=== PATIENT | female | born 1950 | race Caucasian/White ===

== ENCOUNTER → 2017-04-28 | Outpatient (CLI) | payer MEDICARE, OTHER ==
--- NOTE | 2017-04-28 15:59 | MRI ---
EXAM DESCRIPTION: Lumbar Spine w/wo Contrast MRI. CLINICAL HISTORY: RADICULOPATHY COMPARISON: MRI scan lumbar spine 03/10/2012. TECHNIQUE: Multiplanar, multiple standard sequences, high-field MRI scans without and with gadolinium IV contrast, lumbar spine. No adverse reactions. FINDINGS: L5-S1: Diffuse Modic type I endplate reactive changes with marked disc space narrowing. Bilateral partial L5 laminectomy. Desiccation of the disc remnant with posterior midline 3 mm bulge. Mild canal narrowing. Moderate right foraminal narrowing and severe left foraminal narrowing with bony abutment of the exiting left L5 nerve. Bilateral mild facet arthrosis. Normal contrast enhancement of the nerve roots. L4-5: Disc desiccation and minimal disc space loss. Grade 1 anterolisthesis 3.8 mm with minimal disc bulge. Small Schmorl's nodes inferior L4 endplate. Canal nearly stenotic. Severe bilateral foraminal narrowing more left than right. Bilateral partial L4 laminectomy. Bilateral mild facet arthrosis. Normal contrast enhancement of the nerve roots. No posterior soft tissue enhancement. L3-4: Disc desiccation and disc space is preserved. No posterior bulging. Minimal facet arthrosis and ligament hypertrophy. Mild canal narrowing. Bilateral foramina and canal are patent. Normal enhancement nerve roots. L2-3: Minimal disc desiccation. No posterior bulging. Disc space preserved. Minimal ligament hypertrophy bilaterally. Canal and bilateral foramina are patent. Normal contrast enhancement. L1-2: Conus terminates at L1, otherwise unremarkable. Normal contrast enhancement. T12-L1: Disc is unremarkable disc space narrowed. Modic type II endplate reactive changes anterior inferior T12 endplate. No enhancement. Canal and foramina are patent with normal contrast enhancement. Facets and ligaments are unremarkable. Paravertebral soft tissues minimal muscle atrophy with no abnormal fluid or contrast enhancement. Otherwise normal marrow signal in the remaining vertebral bodies and the posterior elements. Vertebral bodies are not compressed at any level. IMPRESSION: 1. Diffuse spondylosis and disc space loss at L5-S1. Remnant disc bulging posterior. Severe left foraminal narrowing stable since the prior study. Correlate for left L5 radiculopathy. 2. Grade 1 anterolisthesis has progressed since the prior study along with severe bilateral foraminal narrowing and near stenosis of the canal. Correlate for bilateral L4 radiculopathy. 3. Modic type II endplate changes inferior T12 stable since the prior study. Electronically signed by: Marcelino Leo MD 04/28/2017 3:58 PM [facility]
== END | disposition home or self-care (01) ==
LOC: MRI 09:00
PROVIDERS: ATTEND Physical Medicine & Rehabilitation
DX: M54.16 Radiculopathy, lumbar region (principal); M43.16 Spondylolisthesis, lumbar region; M96.1 Postlaminectomy syndrome, not elsewhere classified

== ENCOUNTER → 2017-12-13 | Outpatient (CLI) | payer MEDICARE ==
--- NOTE | 2017-12-15 08:14 | MAM ---
EXAM DESCRIPTION: 3D Screening BILATERAL : Digital Mammography. CLINICAL HISTORY: 67 years Female SCREENING . No personal history or family history of breast cancer. Childbirth. Postmenopausal. Currently on HRT. Lifetime risk of developing breast cancer (Tyrer-Cuzick model) is 5.2 %. COMPARISON: 2-D digital screening bilateral study 03/16/2016. TECHNIQUE: Bilateral CC and MLO projection full-field images, Digital tomosynthesis mammographic technique. Bilateral digital 2-D full-field MLO images. CAD not utilized. FINDINGS: The breast parenchymal density pattern is: Scattered areas of fibroglandular density. No skin thickening or nipple retraction. Posterior medial skin mole right breast. Inferior skin mole on the left medially with axillary node. Bilateral vascular calcifications. No new focal, stellate mass or density, focal asymmetry , and no suspicious microcalcifications bilaterally. Stable mammograms compared to prior study. Taking into account, differences in mammographic technique. IMPRESSION: Benign exam. BIRAD CATEGORY: 2 BENIGN FINDINGS. RECOMMENDATIONS: FOLLOW UP: Routine digital bilateral screening, one year interval from December 2017. Written communication explaining the IMPRESSION and follow-up, will be mailed to the patient and referring health care provider. According to the [employer], yearly mammograms are recommended starting at age 40 and continuing as long as a woman is in good health. Any breast change noted on a breast self-exam should be reported promptly to the patient's healthcare provider. Breast MRI is recommended for women with an approximately 20-25% or greater lifetime risk of breast cancer, including women with a strong family history of breast or ovarian cancer and women who have been treated for Hodgkin's disease. A negative mammographic report should not delay tissue diagnosis in patients with significant clinical history or physical findings. Extremely dense breast tissue limits the sensitivity of digital mammography. Electronically signed by: Marcelino Leo MD 12/15/2017 8:12 AM CDT
== END ==
LOC: MAMMO 10:30
PROVIDERS: ATTEND Family Medicine
DX: Z12.31 Encounter for screening mammogram for malignant neoplasm of breast (principal)

== ENCOUNTER 2018-04-24 05:18 | Day surgery (SDC) | payer MEDICARE ==
[2018-04-24] MEDS ORDERED: PROPARACAINE 0.5% OPHTH SOL 15 ML BTTL ONE (12:19)
[2018-04-24] MEDS ORDERED: TROP 1%/CYCLOPEN 1%/PHENYL 2% DROPS ONE (12:19)
[2018-04-24] MEDS ORDERED: MIDAZOLAM INJ 2 MG/2 ML VIAL ONE ×2 (13:42→13:59)
[2018-04-24] MEDS ORDERED: DEXAMETHASONE 0.1% OPHTH SOL 1 DROP LEFT_EYE ONE ×2 (13:58→14:10)
[2018-04-24] MEDS ORDERED: TOBRAMYCIN SULF 0.3 % OPHT SOL 1 DROP LEFT_EYE ONE ×2 (13:58→14:10)
[2018-04-24] MEDS ORDERED: LIDOCAINE 1% MPF 5 ML VIAL INJ ONE (13:58)
[2018-04-24] MEDS ORDERED: BRIMONIDINE 0.2% OPHTH DROPS LEFT_EYE ONE ×2 (13:59→14:10)
== END 2018-04-24 14:45 | disposition home or self-care (01) ==
LOC: AMB 05:18
PROVIDERS: ATTEND Ophthalmology
DX: H25.12 Age-related nuclear cataract, left eye (principal); J45.909 Unspecified asthma, uncomplicated; Z88.7 Allergy status to serum and vaccine; Z90.710 Acquired absence of both cervix and uterus; Z79.899 Other long term (current) drug therapy
CPT/HCPCS: 00142; 66984; J2250

== ENCOUNTER → 2018-05-08 | Day surgery (SDC) | payer MEDICARE ==
[~2018-05-08] MED LIST: BRIMONIDINE 0.2% OPHTH DROPS RIGHT_EYE ONE; DEXAMETHASONE 0.1% OPHTH SOL 1 DROP RIGHT_EYE ONE; LIDOCAINE 1% 2 ML VIAL INJ ONE; MIDAZOLAM INJ 2 MG/2 ML VIAL IV ONE; MOXIFLOXACIN HCL (OPHTH) 1 DROP DROPS ONE; MOXIFLOXACIN HCL (OPHTH) 1 DROP DROPS RIGHT_EYE ONE; PROPARACAINE 0.5% OPHTH SOL 15 ML BTTL ONE; PROPARACAINE 0.5% OPHTH SOL 15 ML BTTL RIGHT_EYE ONE; TOBRAMYCIN SULF 0.3 % OPHT SOL 1 DROP RIGHT_EYE ONE; TROP 1%/CYCLOPEN 1%/PHENYL 2% DROPS ONE
== END | disposition home or self-care (01) ==
LOC: AMB 10:55
PROVIDERS: ATTEND Ophthalmology
DX: H25.11 Age-related nuclear cataract, right eye (principal); I10 Essential (primary) hypertension; J45.909 Unspecified asthma, uncomplicated; Z88.7 Allergy status to serum and vaccine; Z79.899 Other long term (current) drug therapy
CPT/HCPCS: 00142; 66984; J2250

== ENCOUNTER → 2020-04-22 | Outpatient (CLI) | payer MEDICARE ==
--- NOTE | 2020-04-22 14:56 | RAD ---
EXAM DESCRIPTION: Lumbar Spine 5 Views CLINICAL HISTORY: 69 years Female, LOW BACK PN COMPARISON: MRI lumbar spine 04/28/2017. TECHNIQUE: 5 view radiograph of the lumbosacral spine. IMPRESSION: 5 lumbar type vertebral bodies. Most inferior disc space designated as L5-S1. No acute displaced fracture or compression deformity. Moderate lordosis centered at L3. Grade 1 anterolisthesis of L4 relative L5 contributed by facet hypertrophy. Mild dextro curvature of the lumbar spine centered at the thoracic lumbar junction. No lateral translation. Moderate facet arthropathy within the mid to lower lumbar spine. Moderate disc space narrowing and vacuum disc phenomenon within L4-5 consistent with disc degeneration. Moderate chronic stool. Electronically signed by: Behzad Davis MD 04/22/2020 2:54 PM [facility]
== END ==
LOC: RAD 11:42
PROVIDERS: ATTEND Family Medicine
DX: M40.56 Lordosis, unspecified, lumbar region (principal); M47.896 Other spondylosis, lumbar region; M51.86 Other intervertebral disc disorders, lumbar region; M43.16 Spondylolisthesis, lumbar region; M43.8X6 Other specified deforming dorsopathies, lumbar region; K59.09 Other constipation